=== PATIENT | female | born 1950 | race Caucasian/White ===

== ENCOUNTER → 2018-01-28 | Day surgery (SDC) | payer OTHER ==
[2018-01-13 07:51] VITALS: Ht 157.5 cm; Wt 85.5 kg
[~2018-01-28] VITALS: Ht 157.5 cm; Wt 85.5 kg
[~2018-01-28] MED LIST: 500ML BSS 0.3ML EPI 1:1000PF IRRIG ONE; ACETAMINOPHEN 325 MG TAB PO PRN; AMVISC PLUS 0.8ML SYRINGE INT OCU ONE; ATROPINE SULFATE 0.1 MG/ML 5ML SYR IV PRN; AcetylCHOLine CHL OP SOL 1:100 2 ML BTL ONE; BSS FLUSH ONE; CHOL1000 PO; COEN1CAP7 PO; ENDOCOAT 0.85ML SYRINGE INT OCU ONE; EpHEDrine SULFATE INJ 50 MG/ML AMP IV PRN; EpINEphrine INJ 1MG/ML AMP 1 MG/ML AMP ONE; LABETALOL HCL IV 5 MG/ML 20ML ONE; LACTATED RINGER'S 1000ML 500 ML IV SCH; LIDOCAINE 4% OP SOLN DROP CHARGE ONE; LIDOCAINE 4% OP SOLN DROP CHARGE OPL SCH; LIDOCAINE HCL 1% MPF 2 ML VIAL ONE; LISI-788 PO; MIDAZOLAM HCL 1 MG/ML 2ML VIAL ONE; MIX: 4ML BSS 1ML EPI 1:1000 PF TOP ONE; MOXIFLOXACIN OPH SOLN PER DROP CHARGE ONE; ONDANSETRON INJ 2 MG/ML 2 ML VIAL IV PRN; POVIDONE-IODINE OP SOLN 30 ML BTL ONE; PROPARACAINE 0.5% OP SOLN PER DROP CHARGE OPL SCH; TOBRAMYCIN/DEXAMETHASONE OPH OINT PER APPLN CHARGE ONE
[2018-01-28] MEDS: PHENYLEPHRINE HCL 2.5% OP SOLN PER DROP CHARGE OPL SCH ×3 (08:00→08:12)
[2018-01-28] MEDS: CYCLOPENTOLATE HCL 1% OP SOLN PER DROP CHARGE OPL SCH ×3 (08:00→08:14)
[2018-01-28] MEDS: TROPICAMIDE 1% OP SOLN PER DROP CHARGE OPL SCH ×3 (08:01→08:13)
--- NOTE | 2018-01-28 08:02 | History & Physical Bridge - [place] ---
H&P Re-Evaluation Bridge Note: I have examined the patient, reviewed the History & Physical and in the interval since the performance of the History & Physical I have noted the following changes of clinical significance: No changes noted
[2018-01-28] MEDS: MOXIFLOXACIN OPH SOLN PER DROP CHARGE OPL SCH ×3 (08:15→09:09)
--- NOTE | 2018-01-28 09:15 | [facility] Post Operative Brief Note ---
Immediate Operative Summary Operative Date January 28, 2018. Pre-Operative Diagnosis Left Eye Cataract Post-Operative Diagnosis same as pre op Procedure(s) Performed Left Cataract Phacoemulsification With Intraocular Lens Implant With Symfony Lens Surgeon Dr Salinas Track Worker Surgeon(s) none Estimated Blood Loss 0ml Findings Consistent with Post-Op Diagnosis Specimens none Anesthesia Type MAC Complication(s) none Disposition Accompanied Pt To Recovery: no Disposition:
--- NOTE | 2018-01-28 09:16 | [facility] Operative Report ---
Operative Report Date of Service January 28, 2018. Operative Report DATE OF OPERATION: 01/28/18 PREOPERATIVE DIAGNOSIS: Senile nuclear cataract, left eye POSTOPERATIVE DIAGNOSIS: Senile nuclear cataract, left eye PROCEDURE PERFORMED: Phacoemulsification with intraocular lens implantation, left eye SURGEON: Dr. Holden Salinas ANESTHESIA: Topical with 1% intracameral lidocaine and monitored anesthesia care COMPLICATIONS: None DESCRIPTION OF PROCEDURE: After positively identifying the patient both verbally and by wristband in the preoperative area, the left eye was marked as the operative eye. The patient was then brought back to the operating room by the anesthesia and nursing staff where they were given a drop of Lidocaine and betadine into the operative eye. They were then sterilely prepped and draped in the standard fashion typical for ophthalmic surgery. Steri-strips were placed along the upper eyelids to keep the lashes back, and a lid speculum was placed into the operative eye. At this point, a documented time out was performed with members of the ophthalmology, nursing, and anesthesia staffs all agreeing upon the correct patient, correct location for surgery, correct procedure, and correct type and power of intraocular lens to be implanted. The microscope was then swung into position. First, a paracentesis wound was made using a sideport blade. Then, in sequence, 1% preservative-free lidocaine followed by Endocoat viscoelastic was injected into the anterior chamber. Next , the main incision was made with a keratome blade in triplanar fashion. A sharp cystotome was introduced into the eye and used to create a tear in the anterior capsule, which was directed into a continuous curvilinear capsulorrhexis using Utrata forceps. Hydrodissection was then performed with BSS on a flat-tip cannula. Next, the phacoemulsification handpiece was introduced into the eye and used to remove the nucleus in a [id number] fashion. This was done without complication and then the irrigation-aspiration handpiece was introduced into the eye and used to remove all remaining cortical and epinuclear material. Amvisc was then injected into the anterior chamber as well as into the capsular bag and using the lens injector system, a ZXR00 21.0 D lens, serial number [id number], and expiration date 11/2022 was injected into the capsular bag and rotated into the correct position. Next, the irrigation- aspiration handpiece was used to remove all remaining Amvisc. BSS was used to hydrate the main wound, and then BSS was injected into the paracentesis site to reach physiologic pressure and then the main wound was checked and found to be watertight. The patient was given drops of Vigamox and Tobradex ointment into the operative eye, and then the surrounding area was cleaned and dried. A clear plastic shield was placed over the eye and the patient was then sat up and taken from the operating room by the anesthesia staff having tolerated the procedure well and suffering no complications. DISPOSITION: The patient was returned to the recovery room in stable condition. I attest to the content of the Intraoperative Record and any orders documented therein. Any exceptions are noted below.
--- NOTE | 2018-01-28 09:17 | Discharge Instructions-SurgCtr ---
Discharge Instructions Date of Service January 28, 2018. Visit Reason for Visit: Left Cataract Discharge Discharge Diagnosis / Problem: left cataract Discharge Goals Goal(s): Decrease discomfort, Improve function Activity Recommendations Activity Limitations: as noted below Anesthesia . Post Anesthesia Instructions: If you have had General Anesthesia or IV Sedation: * Do not drive today. * Resume driving when surgeon permits. * Do not make important decisions or sign legal documents today. * Call surgeon for: 1. Temperature elevations greater than 101 degrees F. 2. Uncontrollable pain. 3. Excessive bleeding. 4. Persistent nausea and vomiting. 5. Medication intolerance (nausea, vomiting or rash). * For nausea and vomiting use only clear liquids such as: tea, soda, bouillon until nausea subsides, then gradually increase diet as tolerated. * If you have any concerns or questions, call your surgeon's office. If physician is unavailable and it is an emergency, call 911 or go to the nearest emergency room. . Instructions / Follow-Up Instructions / Follow-Up ACTIVITY RECOMMENDATIONS: * Light activities. * You may walk outside, read, watch television. * You may notice redness on the white part of the eye and some blurry vision - this is normal. MEDICATIONS: Resume previous medications unless instructed otherwise by your surgeon. Start all eye drops at 11:30 am today: * Eye drops (today): Prednisone - one drop in operative eye every 2 hours while awake Ofloxacin - one drop in operative eye every 2 hours while awake Prolensa - one drop in operative eye daily SPECIAL CARE INSTRUCTIONS: * Tape plastic shield over eye to sleep at night. Call your doctor at with any concerns or problems. FOLLOW UP VISIT: Follow-up with Dr Salinas at [place] office as scheduled. Diet Recommendations Home Diet: no limitations Procedures Procedures Performed: Left Cataract Phacoemulsification With Intraocular Lens Implant With Symfony Lens Pending Studies Studies pending at discharge: no Medical Emergencies . Who to Call and When: Medical Emergencies: If at any time you feel your situation is an emergency, please call 911 immediately. . Non-Emergent Contact Non-Emergency issues call your: Surgeon . . "Provider Documentation" section prepared by Holden Salinas. .
[2018-01-28 09:18] VITALS: TEMP 36.4
--- NOTE | 2018-01-28 09:37 | Anesthesia Progress Nt - [facility] ---
Anesthesia Post Op Note Date & Time January 28, 2018 at 09:37 Vital Signs Pain Intensity: 0 Vital Signs Past 12 Hours Date Time Temp Pulse Resp B/P (MAP) Pulse Ox O2 Delivery O2 Flow Rate FiO2 01/28/18 09:18 36.4 69 16 161/80 (107) 95 Room Air 01/28/18 07:46 36.5 72 18 144/82 (102) 98 Room Air Notes Mental Status: alert / awake / arousable, participated in evaluation Pt Amnestic to Procedure: Yes Nausea / Vomiting: adequately controlled Pain: adequately controlled Airway Patency, RR, SpO2: stable & adequate BP & HR: stable & adequate Hydration State: stable & adequate Anesthetic Complications: no major complications apparent
[2018-01-28 09:51] VITALS: BP 146/79; PULSE 71; O2SAT 100
== END | disposition home or self-care (01) ==
LOC: X.SURG 07:35
PROVIDERS: ATTEND Ophthalmology
DX: H25.12 Age-related nuclear cataract, left eye (principal); I10 Essential (primary) hypertension; G47.33 Obstructive sleep apnea (adult) (pediatric); Z85.3 Personal history of malignant neoplasm of breast; Z90.89 Acquired absence of other organs; Z87.891 Personal history of nicotine dependence; Z80.3 Family history of malignant neoplasm of breast

== ENCOUNTER 2025-01-21 06:24 | Observation (INO) ==
--- NOTE | 2024-12-22 13:42 | PAT Medication Instructions ---
Medication Instructions Date of Service December 22, 2024 Home Medications Calcium + D 1,000 mg PO QPM hydrochlorothiazide 25 mg tablet 25 mg PO QAM lisinopril 20 mg tablet 40 mg PO QAM meclizine 25 mg tablet 25 mg PO DAILY PRN mrtpkahn-vwa-cjzj-FA-Ca carb-vit K 18 mg iron-400 mcg-500 mg tablet 1 tab PO QPM omeprazole 20 mg capsule,delayed release 20 mg PO QAM Continue as directed meclizine 25 mg tablet 25 mg PO DAILY PRN(if needed) DO NOT take the morning of surgery hydrochlorothiazide 25 mg tablet 25 mg PO QAM lisinopril 20 mg tablet 40 mg PO QAM Take morning of surgery With a small sip of water, OTHERWISE NOTHING TO EAT OR DRINK AFTER MIDNIGHT: omeprazole 20 mg capsule,delayed release 20 mg PO QAM Take evening before surgery Calcium + D 1,000 mg PO QPM gjpmgsyh-vjn-dpyn-FA-Ca carb-vit K 18 mg iron-400 mcg-500 mg tablet 1 tab PO QPM Other Notes If you have any questions please call us at [phone] or [phone] or [phone] or [phone]
--- NOTE | 2024-12-28 10:12 | Anesthesiology Consultation ---
Date of Service December 28, 2024 Assessment & Plan (1) Encounter for pre-operative examination: - Patient requests testing be faxed to [facility] PCP for continuity of care. - Outpatient joint assessment: Patient is currently scheduled for inpatient pathway. If re-evaluated and patient/surgeon requests outpatient pathway, patient is not advised candidate for outpatient joint program. Chart Review Chart Review: Acceptable Risk for Surgery and Patient seen in Pre Admission Testing Teaching & Discussion Pre-Anesthesia Teaching/Discussion Notes: Instructed NPO after midnight before surgery, except medications with 15 cc of water. Medication instructions provided according to the PAT guidelines. History Surgery Operation Date: 01/21/25 07:00 Proposed Procedures p Left Total Knee Arthroplasty - Elton Sterling DO Height/Weight Height: 5 ft 2 in Weight: 89.2 kg Allergies Allergy/AdvReac Type Severity Reaction Status Date / Time adhesive Allergy Unknown SKIN Verified 12/17/24 10:16 PIMPLES No Known Drug Allergies Allergy Unknown . Verified 12/17/24 10:16 Medications Home Medications Medication Instructions Recorded Confirmed Last Taken Calcium + D 1,000 mg PO QPM 12/17/24 12/17/24 Unknown hydrochlorothiazide 25 mg tablet 25 mg PO QAM 12/17/24 12/17/24 Unknown lisinopril 20 mg tablet 40 mg PO QAM 12/17/24 12/17/24 Unknown meclizine 25 mg tablet 25 mg PO DAILY PRN Vertigo 12/17/24 12/17/24 Unknown suysbbzz-kph-njlz-FA-Ca carb-vit K 1 tab PO QPM 12/17/24 12/17/24 Unknown 18 mg iron-400 mcg-500 mg tablet omeprazole 20 mg capsule,delayed 20 mg PO QAM 12/17/24 12/17/24 Unknown release cranberry extract 250 mg tablet mg PO 12/28/24 Unknown Additional Notes: Patient was instructed to stop collagenase powder 2 weeks before surgery and she is to stop cranberry and Zicam supplement the morning of surgery. She denied additional questions, concerns, medications or supplements. Past Medical History Medical History (Updated 12/29/24 @ 08:40 by Casandra Melara PA-C) Chronic kidney disease, stage 3b History of COVID-19 (~2022) ~2022, denies hospitalization, resolved History of hypertension controlled, stable per pt Hx of breast cancer (2018) ductal carcinoma in situ, left breast; sx and accelerated xrt 2x/day for 1 week-denies limb restriction Hx of bronchitis (~09/2024) 09/2024, cough lasted "for almost a month" resolved Hx of chest pain (~2023) over 1 year ago (early 2023), had negative stress test "told it may have been her GERD"; no cardiology currently-states rare recurrence of chest tightness with respiratory illnesses which resolved once illness resolved Hx of colonic polyps Hx of gastroesophageal reflux (GERD) controlled, stable per pt Nausea and vomiting after administration of anesthetic agent "only happened years ago, not with any recent procedures" Scoliosis Sleep apnea CPAP-compliant Patient denies h/o stroke, seizures, heart attack, heart failure, DM, blood c lots/DVTs or blood transfusions. Exercise / Class Metabolic Activity II 4-5 Yardwork/Stairs/Walk up hill (denies chest discomfort or shortness of breath with one flight of stairis) Past Surgical History Surgical History History of bilateral tubal ligation History of dilatation and curettage History of esophagogastroduodenoscopy (EGD) (2020) History of lumpectomy of left breast (2017) Hx of bilateral cataract extraction Hx of colonoscopy (2023) Hx of oral surgery in the s, "for tooth that didn't grow in right" Hx of tonsillectomy as child Past Anesthesia History No Hx of Anesthesia Complications and No Family Hx of Anesthesia Complications History of PONV History of PONV and Hx of Motion Sickness Social History Smoking Status: Former smoker Do You Dip or Chew Tobacco: No Smoking End Date: many years ago Hx Alcohol Use: Yes Alcohol type: wine alcohol intake frequency: holidays/special occasions only Hx Substance Use: No substance use type: does not use Review of Systems Patient denies chest pain, shortness of breath, dyspnea on exertion, fever, chills, cough, wheezing, or palpitations. Physical Exam Vital Signs Vitals BP 139/82 P 71 TEMP 97.7 SP02 96% on RA RESP 18 Physical Patient resting comfortably in chair in no acute distress, alert and oriented, responding appropriately throughout visit Full cervical extension range of motion without pain TMD 3.5 finger breadths Mallampati Score 2 Dentition: front upper veneers and implants, denies chipped or loose teeth, caps/crowns, or bridges Lungs: normal respiratory effort. Good air movement, clear throughout to auscultation, no adventitious breath sounds Cardiac: regular rate and rhythm, no murmurs noted Carotid arteries: negative bruit bilat Lab Results Anesthesia Preop Results Results Anesthesia Widget: WBC 7.39 K/ul (4.8-10.8) 12/28/24 Hgb 12.2 g/dl (12.0-16.0) 12/28/24 Hct 37.6 % (37.0-47.0) 12/28/24 Plt 240 K/uL (130-400) 12/28/24 Na 140 mmol/L (136-145) 12/28/24 K 4.3 mmol/L (3.5-5.1) 12/28/24 Cl 104 mmol/L (98-107) 12/28/24 CO2 29 mmol/L (21-32) 12/28/24 BUN 22 mg/dl (6-23) 12/28/24 Creat 1.19 mg/dl (0.6-1.2) 12/28/24 Glucose Level 93 mg/dl (70-99(Fasting)) 12/28/24 PT 10.8 Seconds (9.0-12.0) 12/28/24 PTT 28 Seconds (21-31) 12/28/24 INR 1.0 (0.9-1.1) 12/28/24 Blood Type A Positive 12/28/24 Antibody Screen NEGATIVE 12/28/24 Testing Electrocardiogram Date: 12/28/24 NSR, rate 66 bpm Chest X-Ray Date: 12/28/24 No acute cardiopulmonary findings. Stress Test Date: 05/30/22 MPHR 105% Negative for ischemia EF > 70%
[2025-01-21] MEDS ORDERED: ROPIVACAINE 0.5% 5 MG/ML 30 ML VIAL ONE (06:28)
[2025-01-21] MEDS ORDERED: BUPIVACAINE 0.5 % 5 MG/1 ML PF 10ML VIAL ONE (06:28)
--- NOTE | 2025-01-21 06:40 | History & Physical Bridge Note ---
Date of Service January 21, 2025 History & Physical Bridge Note I have examined the patient, reviewed the History & Physical and in the interval since the performance of the History & Physical I have noted the following changes of clinical significance: no changes noted
--- OUTSIDE RECORDS SUMMARY | 2025-01-21 06:56 | External Medical Summary | Summary of Care ---
Author Name Unknown Organization [facility] Address [address] [place] [address] Phone [phone] Care Team Providers Care Lab Clerk Name Role Phone Eyal Horton MD Primary Care Provider [phone] Reason for Visit * Reason Onset Date Comments Health Maintenance 01/11/2025 Encounter Details Date Type Department Care Team (Late st Contact Info) Description 01/11/2025 Telephone [facility] [address] [place] [address] Eyal Horton MD [address] [place], [place] [id number] Health Maintenance Allergies Active Allergy Reactions Criticality Noted Date Comments Adhesive Tape 05/29/2011 Has reaction to the skin documented as of this encounter (statuses as of 01/12/2025) Medications Collagenase Powder Use as directed. Active Meclizine HCl 25 MG Oral Tablet (Antivert)Indicatio ns:Benign paroxysmal vertigo, unspecified laterality Take 0.5-1 Tabs by mouth 3 times a day as needed for Dizziness. 30 Tab 1 1 Active Calcium 1000 + D 1000-800 MG-UNIT Oral Tablet (Calcium Carb-Cholecalcifero l) Take by mouth 1 Tablet daily . Active Diclofenac Sodium 1 % External Gel (Voltaren)Indicatio ns:Osteoarthritis of carpometacarpal (CMC) joints of both thumbs, unspecified osteoarthritis type Apply topically to affected area 4 times a day as needed for Pain. Apply to base of thumbs 150 g 5 2 Active Multivitamin Women 50+ Oral Tablet Take by mouth. Active Cranberry 125 MG Oral Tablet Take by mouth. Active Omeprazole 20 MG Oral Capsule Delayed Release (PriLOSEC)Indicatio ns:Gastroesophageal reflux disease without esophagitis TAKE 1 CAPSULE BY MOUTH DAILY. TAKE 1 HOUR BEFORE THE FIRST MEAL OF THE DAY. 90 Capsule 3 4 Active Lisinopril 20 MG Oral Tablet (Prinivil)Indicatio ns:HTN, goal below 140/90 TAKE 1 TABLET BY MOUTH IN THE MORNING AND 1 TAB BEFORE BEDTIME 180 Tablet 3 5 Active hydroCHLOROthiazide 25 MG Oral Tablet (Hydrodiuril)Indica tions:HTN, goal below 140/90 Take 1 Tablet by mouth in the morning. 90 Tablet 2 5 Active documented as of this encounter (statuses as of 01/12/2025) Active Problems Problem Noted Date Diagnosed Date Hypertensive kidney disease with stage 3b chronic kidney disease 03/06/2021 Overview: Per CKD protocol Chronic kidney disease, stage 3b 03/06/2021 Overview: Per CKD protocol Cough 11/08/2020 Nocturnal hypoxemia 11/04/2019 Incomplete emptying of bladder 07/22/2019 Thickened endometrium 05/10/2019 HTN, goal below 140/90 09/10/2017 Vitamin D insufficiency 10/13/2015 HAYDEN (obstructive sleep apnea) 01/05/2015 Overview (05/06/2023): 12/2014 PSG -- AHI 23, desats 54 minutes [facility] Oxygen Obesity, Class I, BMI 30.0-34.9 (see actual BMI) 01/29/2012 Overview (01/29/2012): bmi= 31.58 01/29/12 Carcinoma in situ of breast 06/18/2011 Hypersomnia with sleep apnea 02/02/2007 Anxiety state 01/02/2007 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 FAMILY HX-GI MALIGNANCY 05/19/2003 Esophageal reflux 05/19/2003 documented as of this encounter (statuses as of 01/12/2025) Resolved Problems Problem Noted Date Diagnosed Date Resolved Date Chronic kidney disease, stage 3a 01/30/2021 03/08/2021 Overview: Per CKD protocol Hypertensive kidney disease with stage 3a chronic kidney disease 07/31/2020 03/08/2021 Overview: Per CKD protocol Hypertensive kidney disease with chronic kidney disease stage III 02/01/2019 08/03/2020 Overview: Per CKD protocol Kidney disease, chronic, sta ge III (GFR 30-59 ml/min) 06/29/2018 03/03/2019 Overview: Per CKD protocol #1 Malaise and fatigue 01/02/2007 06/23/20 18 Menopause 05/19/2003 06/23/2018 documented as of this encounter (statuses as of 01/12/2025) Immunizations Name Administration Dates Next Due COVID-19 mRNA, LNP-s, No Pre serve, 2-Dose Series (Kryptiq) 11/04/2020,10/14/2020 COVID-19, MRNA-LNP, PF, 10 M CG/0.3 mL, 5-11 YRS, IM (PFIZER) 07/21/2023 Covid-19, Mrna, Lnp-s, Pf, B ivalent, 30 Mcg, IM, 12 yrs and above (Kryptiq) 08/20/2022 PPD 10/07/2018,09/29/2018 Pneumococcal Conjugate Vacc, 13 Valent (Prevnar) 06/10/2016 Pneumococcal Polysaccharide PPV23 (Pneumovax) 01/10/2015 RSV Vac., Bivalent, Perfusio n F, Pf,0.5 Ml (Abrysvo) 07/23/2024 Seasonal Influenza Vac., MDV , IM, 0.5 mL (Fluzone) 06/22/2015,07/23/2014 Seasonal Influenza, High Dos e, Trivalent, PF, IM (Fluzone HD) 07/05/2024 Seasonal Influenza, PF, 6 M & above, IM , (FluLaval or Fluzone) 06/15/2020,06/23/2018,06/22/2017 Seasonal Influenza, Quadriva lent Hd (Fluzone Hd) 07/02/2023,07/23/2022 Seasonal Influenza, Quadriva lent, No Preserve, IM 10/17/2016 Seasonal Influenza, Trivalen t, Adjuvanted, 65+ YRS, PF, (Fluad) 09/29/2019 TD, Preservative Free 05/09/2021 TDAP, Age 7 and older, IM (Adacel) 05/03/2011 Varicella Zoster Vaccine Adult (Zostavax) 2015 Zoster Vaccine Recombinant (Shingrix) 05/05/2020 ,03/02/2020 documented as of this encounter Social History Tobacco Use Types Packs/Day Years Used Date Smoking Tobacco: Former Cigarettes 0.5 35 0 09/22/1966 - 09/22/2001 Smokeless Tobacco: Never Comments:Did socially smoke after 2001, Just smokes occasionally now Quit smoking 02/2023 Alcohol Use Standard Drinks/Week Comments Yes 0 (1 standard drink = 0.6 oz pur e alcohol) less than once a week AUDIT-C Answer Date Recorded Frequency of Alcohol Consumption Monthly or less 02/11/2019 Average Number of Drinks Not on file 019 Frequency of Binge Drinking Not on file 01/21 PHQ-2 Answer Date Recorded PHQ Adult Total Score 0 05/06/2024 Hunger Vital Sign Answer Date Recorded Within the past 12 months, y ou worried that your food would run out before you got the money to buy more. Never true 08/12/20 23 Within the past 12 months, t he food you bought just didn't last and you didn't have money to get more. Never true 08/12/2023 Childcare Answer Date Recorded Do you feel overwhelmed with taking care of a child, family member or friend? No 08/12/2023 Does your family need help f inding childcare? (Household - for ages 0-17 years) Not on file 08/12/2023 Clothing Answer Date Recorded Have you been unable to get clothing when it was really needed? No 08/12/2023 Is your family able to get c lothes or diapers when needed? (Household - for ages 0-17 years) Not on file 08/12/2023 Personal Safety Answer Date Recorded Do you feel unsafe or have concerns for your saf ety? No 08/12/2023 Do you have concerns for you r family's safety? (Household - for ages 0-17 years) Not on file 08/12/2023 Utilities Answer Date Recorded Do you have trouble paying y our heating, water, or electric bill? No 08/12/2023 Is your family able to pay t he heat, water, or electric bill? (Household - for ages 0-17 years) Not on file 08/12/2023 Does your family have access to good internet? (Household - for ages 0-17 years) Not on file 08/12/2023 Employment Status Answer Date Recorded Are you unemployed or without regular income? No 08/12/2023 Does the household have a rustlar source of income? (Household - for ages 0-17 years) Not on file 08/12/2023 Social Connections Answer Date Recorded How often do you feel lonely or isolated from th ose around you? Never 08/12/2023 Financial Resource Strain Answer Date R ecorded Do you have any trouble payi ng for your medications, or do you think you might in the future? No 08/12/2023 Does your family have troubl e paying for medicine? (Household - for ages 0-17 years) Not on file 08/12/2023 Transportation Needs Answer Date Record ed READ ONLY Do you have troubl e getting a ride to medical visits or work? Never True 08/12/2023 Does your family have a hard time getting a ride to doctors visits? (Household - for ages 0-17 years) Not on file 08/12/2023 Has lack of transportation k ept you from medical appointments, meetings, work, or from getting things needed for daily living? Check all that apply. (Adult - for ages 18 years and over) Not on file 08/12/2023 Do you (or your family) have trouble finding or paying for a ride (transportation)? (Household - for ages 0-17 years) Not on file 08/12/2023 Housing Stability Answer Date Recorded Do you currently live in a s helter or have no steady place to sleep at night? No 08/12/2023 READ ONLY Do you think you a re at risk of becoming homeless? No 08/12/2023 Does your family worry about paying for your home or becoming homeless? (Household - for ages 0-17 years) Not on file 1 10/12/2022 Are you homeless or worried that you might be in the future? (Adult - for ages 18 years and over) Not on file Are you (or your family) benita eless or worried that you might be in the future? (Household - for ages 0-17 years) Not on file Food Insecurity Answer Date Recorded Do you need food for this week? No 08/12/2023 Are you able to get enough f ood for your family? (Household - for ages 0-17 years) Not on file 08/12/2023 Does your family need food t his week? (Household - for ages 0-17 years) Not on file 08/12/2023 Do you always have enough fo od for your family? 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 Not on file Not on file documented as of this encounter Miscellaneous Notes * Telephone Encounter - Susannah TeresaSANDRA - 01/11/2025 3:40 PM EDT Care Gaps Comprehensive Care Outreach Last Office/Telemedicine Visit: Visit date not found (in office), Visit date not found (telemedicine) Next Office Visit: Visit date not found Hemoglobin AIC Results: No results found for: "HEMOGLOBIN A1C" BP Readings from Last 1 Encounters: 07/05/24 126/66 Reviewed Health Maintenance below: Health Maintenance Topic Date Due GFR 12/27/2024 COVID-19 Vaccine ( season) 2025 Depression Screening 05/06/2025 Adult Wellness Visit 05/06/2025 CKD HGB USE SMARTSET 85224 06/28/2025 CKD PHOS USE SMARTSET 66035 06/28/2025 Albumin/Creatinine Ratio 07/05/2025 Ov jun year Labs Awv aug already scheduled Care Gap Outreach Action Taken: [employer] message sent documented in this encounter Plan of Treatment Upcoming Encounters Date Type Department Care Team (Late st Contact Info) Description 05/03/2025 9:00 AM EDT Office Visit Sleep Disorders Ctr [facility] [address] [place] [phone] Ilene Shelton CRNP [address] [place] [address] 05/10/2025 9:00 AM EDT Nurse Only Ancillary Department, Naldo Sanchez [address] [place] [phone] Naldo Nurse [facility] [address] [facility] [place] [address] 08/25/2025 11:15 AM EST Imaging Radiology [address] [place] [address] Scheduled Procedures Name Priority Associated Diagnoses Date/Ti me COLONOSCOPY FLEXIBLE PROXIMA L DIAGNOSTIC Recall History of colonic polyps Health Maintenance Due Date Last Done Comments GFR 12/27/2024 06/28/2024, 04/23, 04/22/2022, Additional history exists COVID-19 Vaccine ( season) 2025 09/30/2024, 07/21/2023, 07/21/2023, Additional history exists Adult Wellness Visit 05/06/2025 05/06/2024, 07/23/20 22 Depression Screening 05/06/2025 05/06/2024 CKD HGB USE SMARTSET 33055 06/28/202506/28, 05/12/2023, 04/22/2022, Additional history exists CKD PHOS USE SMARTSET 94864 06/28/202503/2024, 05/12/2023, 02/05/2021, Additional history exists Albumin/Creatinine Ratio 07/05/2025 024, 05/12/2023, 06/06/2022, Additional history exists DXA Scan 08/28/2026 08/28/2021, 1203/2021, 01/19/2014, Additional history exists Colonoscopy 10/03/2026 10/03/2023, 09/22, 06/26/2020, Additional history exists DTap/Tdap Vaccines (3 - Td or Tdap) 05/09/2031 05/09/2021, 05/03/2011, 12/21/1999 Pneumococcal Vaccine: 50+ Years Completed 06/10/2016, 01/10/2015 Zoster Vaccines Completed 05/05/2020, 02/20, 04/16/2016 RETIRED - COLONOSCOPY-EVERY 5 YRS AGES 18-100 Discontinued 10/03/2023, 10/03/2023, 06/26/2020, Additional history exists Influenza Vaccine (FLU shot) Completed 07/05/2024, 07/02/2023, 07/23/2022, Additional history exists HPV (Gardasil) Vaccine Aged Out No lo nger eligible based on patient's age to complete this topic Hepatitis B Vaccine Aged Out No longe r eligible based on patient's age to complete this topic MENINGOCOCCAL (MENACTRA/MENVEO) Aged Out No longer eligible based on patient's age to complete this topic Meningitis B Vaccine (Bexsero/Trumemba) Aged Out No longer eligible based on patient's age to complete this topic documented as of this encounter Medical Devices Not on filedocumented as of this encounter Care Teams Lab Clerk Relationship Specialty Start Date End Date Eyal Horton MD PCP - General 09/29/02 documented as of this encounter
--- OUTSIDE RECORDS SUMMARY | 2025-01-21 06:56 | External Medical Summary | Summary of Care ---
Author Name Unknown Organization [facility] Address [address] [place] [address] Phone [phone] Care Team Providers Care Evs Manager Name Role Phone Eyal Horton MD Primary Care Provider [phone] Reason for Visit * Reason Onset Date Comments Health Maintenance 01/11/2025 Encounter Details Date Type Department Care Team (Late st Contact Info) Description 01/11/2025 Telephone [facility] [address] [place] [address] Eyal Horton MD [address] [place], [place] [phone] Health Maintenance Allergies Active Allergy Reactions Criticality [...] mRNA, LNP-s, No Pre serve, 2-Dose Series (Giant Swarm) 11/04/2020,10/14/2020 COVID-19, MRNA-LNP, PF, 10 M CG/0.3 mL, 5-11 YRS, IM (PFIZER) 07/21/2023 Covid-19, Mrna, Lnp-s, Pf, B ivalent, 30 Mcg, IM, 12 yrs and above (Giant Swarm) 08/20/2022 PPD 10/07/2018,09/29/2018 Pneumococcal Conjugate Vacc, 13 [...] No 08/12/2023 Does the household have a [facility] source of income? (Household - for ages [...] Wellness Visit 05/06/2025 CKD HGB USE SMARTSET 84567 06/28/2025 CKD PHOS USE SMARTSET 71366 06/28/2025 Albumin/Creatinine Ratio 07/05/2025 Ov jun year Labs Awv aug already scheduled Care Gap Outreach Action Taken: [employer] message sent documented in this encounter Plan of Treatment Upcoming Encounters Date Type Department Care Team (Late st Contact Info) Description 05/03/2025 9:00 AM EDT Office Visit Sleep Disorders Ctr [facility] [address] [place] [phone] Ilene Shelton CRNP [address] [place] [address] 05/10/2025 9:00 AM EDT Nurse Only Ancillary Department, Naldo Sanchez [address] [place] [phone] Naldo Nurse Annual Wellness [address] [facility] [place] [address] 08/25/2025 11:15 AM EST Imaging Radiology [address] [place] [phone] [...] Screening 05/06/2025 05/06/2024 CKD HGB USE SMARTSET 73190 06/28/202506/28, 05/12/2023, 04/22/2022, Additional history exists CKD PHOS USE SMARTSET 17671 06/28/202503/2024, 05/12/2023, 02/05/2021, Additional history exists Albumin/Creatinine [...] filedocumented as of this encounter Care Teams Evs Manager Relationship Specialty Start Date End Date Eyal Horton MD PCP - General 09/29/02 documented as of this encounter
--- OUTSIDE RECORDS SUMMARY | 2025-01-21 06:56 | External Medical Summary | Summary of Care ---
Author Name Unknown Organization [facility] Address [address] [place] [address] Phone [phone] Care Team Providers Care Windows Software Engineer Name Role Phone Eyal Horton MD Primary Care Provider [phone] Reason for Visit * Reason Onset Date Comments Health Maintenance 01/11/2025 Encounter Details Date Type Department Care Team (Late st Contact Info) Description 01/11/2025 Telephone [facility] [address] [place] [address] Eyal Horton MD [address] [place], [place] [phone] Health Maintenance Allergies Active Allergy Reactions Criticality [...] mRNA, LNP-s, No Pre serve, 2-Dose Series (Fiiiling) 11/04/2020,10/14/2020 COVID-19, MRNA-LNP, PF, 10 M CG/0.3 mL, 5-11 YRS, IM (PFIZER) 07/21/2023 Covid-19, Mrna, Lnp-s, Pf, B ivalent, 30 Mcg, IM, 12 yrs and above (Fiiiling) 08/20/2022 PPD 10/07/2018,09/29/2018 Pneumococcal Conjugate Vacc, 13 [...] t, Adjuvanted, 65+ YRS, PF, (Fluad) 09/29/2019 TD - Tetanus/Diptheria (ADULT) 12/21/1999 TD, Preservative Free 05/09/2021 TDAP, Age 7 [...] No 08/12/2023 Does the household have a re gular source of income? (Household - for ages [...] Miscellaneous Notes * Telephone Encounter - Susannah Teresa LPN - 01/11/2025 3:40 PM EDT Care Gaps [...] Wellness Visit 05/06/2025 CKD HGB USE SMARTSET 81909 06/28/2025 CKD PHOS USE SMARTSET 95199 06/28/2025 Albumin/Creatinine Ratio 07/05/2025 Ov jun year Labs Awv aug already scheduled Care Gap Outreach Action Taken: [employer] message sent documented in this encounter Plan of Treatment Upcoming Encounters Date Type Department Care Team (Late st Contact Info) Description 05/03/2025 9:00 AM EDT Office Visit Sleep Disorders Ctr [facility] [address] [place] [phone] Ilene Shelton CRNP [address] [place] [address] 05/10/2025 9:00 AM EDT Nurse Only Ancillary Department, Naldo Brown [address] [place] [phone] Naldo Nurse Annual Wellness [address] [facility] [place] [address] 08/25/2025 11:15 AM EST Imaging Radiology [address] [place] [phone] Scheduled Procedures Name Priority Associated Diagnoses Date/Ti me COLONOSCOPY FLEXIBLE PROXIMA L DIAGNOSTIC Recall History of colonic polyps Health Maintenance Due Date Last Done Comments GFR 12/27/2024 06/28/2024, 04/23, 04/22/2022, Additional history exists COVID-19 Vaccine ( season) 2025 09/30/2024, 07/21/2023, 07/21/2023, Additional history exists Adult Wellness Visit 05/06/2025 05/06/2024, 07/23/20 22 Depression Screening 05/06/2025 05/06/2024 CKD HGB USE SMARTSET 30483 06/28/202506/28, 05/12/2023, 04/22/2022, Additional history exists CKD PHOS USE SMARTSET 23647 06/28/202503/2024, 05/12/2023, 02/05/2021, Additional history exists Albumin/Creatinine Ratio 07/05/2025 024, 05/12/2023, 06/06/2022, Additional history exists DXA Scan 08/28/2026 08/28/2021, 03/2021, 01/19/2014, Additional history exists Colonoscopy 10/03/2026 10/03/2023, [...] filedocumented as of this encounter Care Teams Windows Software Engineer Relationship Specialty Start Date End Date Eyal Horton MD PCP - General 09/29/02 documented as of this encounter
[2025-01-21] MEDS ORDERED: MIDAZOLAM HCL 1 MG/ML 2ML VIAL ONE (07:03)
[2025-01-21] MEDS ORDERED: PROPOFOL IV EMULSION 10 MG/ML 20 ML VIAL IV ONE (07:04)
[2025-01-21] MEDS ORDERED: ONDANSETRON INJ 2 MG/ML 2 ML VIAL ONE ×2 (07:06→09:10)
[2025-01-21] MEDS ORDERED: LIDOCAINE 2% 2 ML VIAL/AMP(20MG/ML) INFIL ONE (07:06)
[2025-01-21] MEDS: LR 500ML BOLUS, THEN 15ML/HR IV SCH (07:40)
[2025-01-21] MEDS: ACETAMINOPHEN 500 MG TAB PO SCH ×2 (07:44→13:45)
[2025-01-21] MEDS: FAMOTIDINE 20 MG TAB PO SCH (07:45)
[2025-01-21] MEDS: GABAPENTIN 300 MG CAP PO SCH (07:45)
[2025-01-21] MEDS: LR 60ML/HR IV SCH (07:46)
[2025-01-21] MEDS: dexAMETHasone**PF** 10 MG/ML VIAL IV SCH (07:46)
[2025-01-21] MEDS: TRANEXAMIC ACID 1,000 MG **IV Pre-op IV SCH (07:52)
[2025-01-21] MEDS: ceFAZolin 2000MG 2,000 MG/15 ML SYR IV SCH ×2 (08:05→16:08)
[2025-01-21] MEDS ORDERED: ONDANSETRON INJ 2 MG/ML 2 ML VIAL IV PRN ×2 (08:40→11:50)
[2025-01-21] MEDS ORDERED: HYDROmorphone INJ 2 MG/ML SYR/VIAL IV PRN (08:40)
[2025-01-21] MEDS ORDERED: PROMETHAZINE HCL 6.25 MG in SODIUM CHLORIDE 0.9% 50 ML IV PRN (08:40)
[2025-01-21] MEDS ORDERED: fentaNYL citrate PF 100 MCG/2 ML VIAL IV PRN (08:40)
[2025-01-21] MEDS ORDERED: ePHEDrine sulfate 50 MG/ML AMP IV PRN (08:40)
[2025-01-21] MEDS ORDERED: ATROPINE SULFATE 0.1 MG/ML 10ML SYR IV PRN (08:40)
[2025-01-21] MEDS: ORTHO JOINT ANESTHETIC ONE (08:41)
[2025-01-21] MEDS ORDERED: KETOROLAC 30 MG/ML VIAL ONE (08:49)
[2025-01-21] MEDS: TRANEXAMIC ACID 1,000 MG **IV Intra-op IV SCH (09:03)
[2025-01-21] MEDS: ROPIV 0.5% 246mg, Ketorolac 30mg, EPINEPHrine 0.5mg in NSS INFIL SCH (09:05)
--- NOTE | 2025-01-21 09:08 | Operative Report ---
PG Post Operative Report Pre & Post Diagnosis Operation Date: 01/21/25 08:00 Pre-Op Diagnosis: Osteoarthritis of Left Knee Post-Op Diagnosis: Osteoarthritis of Left Knee I identified the patient and participated in the time-out.: Yes Procedure Operation Date: 01/21/25 08:00 Actual Procedures p Left Total Knee Arthroplasty(Left) - Elton Sterling DO Surgeon Elton Sterling DO Technical Rep Andrew Garcia PA-C Estimated Blood Loss 50 Findings Consistent with Post-Op Diagnosis Specimens Left femoral and tibial bone Description of Procedure Implants used: I used a Rianna Persona total knee arthroplasty system with a size 7 standard PS femur, E tibia, 31 oval patella, and a size 12 CPS polyethylene bearing. All components were cemented in place with Biomet cement. Lennie arrived [facility] for the above procedure. She was seen in the preoperative holding area and the operative extremity was identified and signed. She was given a preoperative antibiotic, TXA, a spinal anesthetic and an adductor nerve block. She was taken back to the operating room and laid on the table in supine position. She was given basic sedation. The operative knee was then prepped and draped in sterile fashion. A timeout was done, and the patient and the operative extremity was properly identified. A midline incision was made directly over the patella. Dissection was taken down to the extensor mechanism. A medial parapatellar arthrotomy was used. The medial retinaculum was released and the fat pad was mostly excised. The knee was flexed and the ACL, PCL, and meniscus were removed. A drill was sent down the center of the femoral canal followed by an intramedullary nelson. Off that nelson a distal femoral cutting block was placed. 9 mm was resected off the distal femur at 5 of valgus. A posterior referencing AP sizing guide was then placed on the distal femur. The femur measured to be a size 7. 2 drill holes were placed in 3 of external rotation. A 4-in-1 cutting block was then impacted into place. Anterior, posterior, and chamfer cuts were then made. The proximal tibia was then exposed. An external tibial alignment guide was placed. A tibial cut guide was then anchored in place and the proximal tibia was then resected. The posterior aspect of the knee was then opened up and any additional meniscus fragments and osteophytes were removed. The tibia measured to be a size E. The tibial plate was then placed in the appropriate rotation and the tibia was drilled and punched. Trial components were then placed. I used a size 12 CPS polyethylene insert. The knee was brought through a full range of motion and felt to be stable. The peg holes for the femoral component were then drilled. The patella was then everted and 9 mm was resected off the posterior aspect of the patella. The patella measured to be a size 31 oval. 3 peg holes were then drilled. A trial patella was placed. The knee was once again brought through a full range of motion and felt to be stable. Trial components were then removed. The surrounding soft tissues were injected with 100 cc of an orthopedic pain control cocktail. All components were then cemented into place with Biomet cement. The final polyethylene insert was then snapped into place. Once cement was dry the tourniquet was deflated. Hemostasis was obtained. A dilute betadyne lavage was then done for 3 minutes. The joint was then irrigated with normal saline solution. The medial parapatellar arthrotomy was then closed with #1 Vicryl suture. The skin was closed with 2-0 Vicryl, 3-0V lock suture, and gissel. A soft compressive dressing was placed. She was then transferred to a hospital bed and taken to the postanesthesia care unit in stable condition. She tolerated the procedure well. Andrew Garcia PA-C, was present for the entire procedure. He was critical for patient positioning, prepping, draping, retraction exposure, wound closure and application of sterile dressing. I attest to the content of the Intraoperative Record and any orders documented therein. Any exceptions are noted below.
--- NOTE | 2025-01-21 10:11 | XRay Report ---
XR knee LT 1 or 2V routine HISTORY: 74 years-old Female Surgical Post Op left knee arthroplasty COMPARISON: 06/23/2024 TECHNIQUE: 3 views of the left knee FINDINGS: Total joint arthroplasty with patellar resurfacing. Anterior midline skin gissel with expected posto perative soft tissue swelling and deep tissue air.No acute fracture or unexpected opaque foreign body . IMPRESSION: Satisfactory alignment of the total joint arthroplasty. ACT 112: Negative or not required by law. The above report was generated using voice recognition software. It may contain grammatical, syntax o r spelling errors. Electronically signed by: Andrew Anderson M.D. 01/21/2025 10:10 AM
--- NOTE | 2025-01-21 11:28 | Anesthesiology Progress Note ---
Date of Service January 21, 2025 Anesthesia Post Procedure Vital Signs Vital Signs: Temp Pulse Pulse Resp BP Pulse Ox O2 Del Method 01/21/25 11:00 62 18 119/54 L 96 Room Air 01/21/25 10:45 65 16 114/57 L 94 Room Air 01/21/25 10:30 36.4 C L 60 16 121/60 94 Room Air 01/21/25 10:20 68 14 118/57 L 100 Room Air 01/21/25 10:10 62 20 125/52 L 96 Room Air 01/21/25 10:00 62 14 118/48 L 96 Room Air 01/21/25 09:50 67 16 123/53 L 96 Room Air 01/21/25 09:40 67 18 114/47 L 100 Oxymask 01/21/25 09:30 36.7 C 73 18 130/49 L 98 Oxymask 01/21/25 07:11 36.8 C 75 20 160/87 H 100 Room Air O2 Flow Rate 01/21/25 11:00 01/21/25 10:45 01/21/25 10:30 01/21/25 10:20 01/21/25 10:10 01/21/25 10:00 01/21/25 09:50 01/21/25 09:40 4 01/21/25 09:30 6 01/21/25 07:11 Pain Intensity Left Knee: Pain Intensity: 5 Right Lower Back: Pain Intensity: 4 Transfer of Care Handoff Completed per policy Notes Mental Status: alert / awake / arousable and participated in evaluation Patient Amnestic to Procedure: Yes Nausea / Vomiting: adequately controlled Pain: adequately controlled Airway Patency, RR, SpO2: stable & adequate BP & HR: stable & adequate Hydration State: stable & adequate Anesthetic Complications: no major complications apparent
[2025-01-21] MEDS ORDERED: NALOXONE HCL 0.4 MG/1 ML VIAL/CARP IV PRN (11:50)
[2025-01-21] MEDS ORDERED: bisacodyL 10 MG SUPP PR PRN (11:50)
[2025-01-21] MEDS ORDERED: METOCLOPRAMIDE HCL INJ 5 MG/ML 2 ML VIAL IV PRN (11:50)
[2025-01-21] MEDS ORDERED: MAGNESIUM HYDROXIDE SUSP 30 ML UDC PO PRN (11:50)
[2025-01-21] MEDS: SODIUM CHLORIDE 0.9% 1,000 ML IV SCH (12:10)
[2025-01-21] MEDS: HYDROmorphone INJ 0.5 MG/0.5 ML SYR IV PRN (12:12)
[2025-01-21] MEDS: KETOROLAC TROMETHAMINE 15 MG/ML VIAL IV SCH (12:12)
[2025-01-21] MEDS: oxyCODONE HCL IR 5 MG TAB (IMMEDIATE RELEASE) PO PRN (16:08)
[2025-01-21] MEDS: ASPIRIN 81 MG ECTAB PO SCH (20:06)
[2025-01-21] MEDS: SENNA 8.6 MG TAB PO SCH (20:06)
[2025-01-21] MEDS: DOCUSATE SODIUM 100 MG CAP PO SCH (20:06)
--- NOTE | 2025-01-22 06:49 | Discharge Summary ---
Date of Service January 22, 2025 Principal Diagnosis Same as "Discharge Diagnosis" noted below under Discharge Instructions. Discharge Exam On physical exam of the left knee, the dressing is clean and dry. Her leg is out full extension. She has active dorsiflexion plantarflexion of her left ankle.. Discharge Data Procedures Performed Operation Date: 01/21/25 08:00 Actual Procedures p Left Total Knee Arthroplasty(Left) - Elton Sterling DO Ordered Studies 01/21/25 05:00 US - OR guided needle placemen Routine Hospital Course (1) Status post left knee replacement: On January 21, 2025 Lennie arrived at [facility] and underwent a left knee replacement without complication. She had a spinal anesthetic. Postoperatively, she was started on aspirin for DVT prophylaxis and transferred to the general orthopedic floors. Her hospital course was uneventful. On postop day #1, her vital signs were stable and her pain was well-controlled. She was able to participate well with physical therapy doing ambulation and ra nge of motion exercises. She was then discharged to home. She will follow-up with orthopedics in 2 weeks. PG Care Time/CCT Total # of Minutes Spent Total Time Spent with Patient: Total time spent is greater than 50% in coordination of care (as documented) at patient's floor/unit and/or counseling patient: Discharge Plan Discharge Items Patient Disposition: Home - Self-Care Reason For Visit: Left Knee Arthritis Discharge Diagnosis: Left knee replacement Activity: Per Instructions section Non-emergency contact: Surgeon Call non-emergency contact if: your wound has increased redness and your wound has increased drainage Follow-up/Referrals: Eyal Horton MD [Primary Care Provider] - Diet: Regular Addtl Attending Provider Instructions: Activity and Therapy Recommendations: * If you are using [facility] then therapy will be provided at your home until they feel you have accomplished all of your goals. * If you are using [facility] then Physical Therapy will be provided until they feel you are ready to start Outpatient Physical Therapy. * If you are not using home therapy then Outpatient Physical Therapy should start about 3-5 days from your day of surgery. Therapy will last about 6-10 weeks * It is important not to put a pillow under your knee when you are relaxing or sleeping. It is just as important to make sure you are getting your knee perfectly straight as it is to regain your knee bend. * You were shown a series of exercises in the hospital. Do these exercises three times each day including the exercises you were shown in physical therapy. * Get up and walk several times each day. For the first four weeks, try not to stand or walk for more than one hour at a time. If you do stand or walk for more than one hour, you will not hurt anything, but your leg will likely swell. * As you feel comfortable, you may change from the walker or crutches to a cane and then to independent walking. Medications: * Narcotic You will likely be sent home from the hospital with a prescription for the narcotic pain medication that worked best throughout your stay. * Cefadroxil -take the antibiotic twice a day for 10 days to help prevent infection. * Aspirin Most patients will be required to take Aspirin 81mg twice a day for 6 weeks after surgery. This is obtained [id number] and a prescription is not necessary. * Other medications may be prescribed for specific circumstances. If you have any questions, please call the office at . * Resume previous home medications unless otherwise instructed TEDs/Elastic Stockings: The white elastic stockings help limit swelling and prevent blood clots from forming in your legs.~ The more you wear them, the more they work. Wear them for 2 weeks. Dressing Care: The dressing can be changed after physical therapy on postop day #1. Daily dry dressing changes for a few days, especially if the incision is still draining some. If the incision is not draining then you may leave the gissel open to air. If there is a little bit of drainage or if the gissel are getting stuck on your clothing then cover the incision with a dry dressing. The gissel will be removed at your 2 week follow-up appointment. Showering: You may shower 5 days from the day of surgery as long as the incision is no longer draining. You may shower with the gissel exposed. Let soapy water run over the gissel and pat them dry. Do not scrub or soak the incision. Diet: You may resume your previous diet. Things To Watch For: * Drainage from the incision site that occurs more than one week after your surgery. * Increased redness at the incision site. * Fever above 102 degrees Fahrenheit. * Unusual chest pain or shortness of breath. * Call [facility] at with any of the above problems Follow-Up Visit: Follow-up with Dr. Sterling's office 2-3 weeks after your day of surgery. We will remove your gissel and answer any questions. If you have any additional questions or concerns, Dr Sterling is usually in the office at the same time and will be available An appointment was probably scheduled when you signed-up for surgery in the office. If you have any questions call Office Instructions: More detailed instructions as well as Frequently Asked Questions were provided in a folder by our office when you signed-up for surgery. Please review these instructions when you get home. If you have any further questions or concerns, please feel free to call the office at [phone] Pending Studies at Discharge: No Stand-Alone Forms: My [facility], Smoking Cessation Medications and DC Order Prescriptions: New cefadroxil 500 mg capsule 500 mg PO BID 10 Days Qty: 20 0RF oxycodone 5 mg tablet 5 mg PO Q6H PRN (Reason: pain) Qty: 30 0RF aspirin 81 mg Tablet,Delayed Release (Dr/Ec) 81 mg PO BID 42 Days Qty: 0 0RF Continued lisinopril 20 mg tablet 40 mg PO QAM meclizine 25 mg Tablet 25 mg PO DAILY PRN (Reason: Vertigo) omeprazole 20 mg capsule,delayed release(DR/EC) 20 mg PO QAM hydrochlorothiazide 25 mg tablet 25 mg PO QAM Women's Multivitamin 18 mg iron-400 mcg-500 mg Tablet 1 tab PO QPM Calcium + D 1,000 mg PO QPM cranberry 250 mg Tablet 250 mg PO DAILY Discharge Orders: Discharge Order (Routine); Ordered 01/22/25 Ordered By: Elton Sterling Admission Data Admit Date/Time: 01/21/25 09:37 Attending Provider: Elton Sterling Admit Provider: Elton Sterling Primary Care Provider: Eyal Horton
--- NOTE | 2025-01-22 06:49 | Orthopedic Progress Note ---
Date of Service January 22, 2025 Assessment & Plan (1) Status post left knee replacement: Overall she is doing very well. She is not having much pain in the left knee. She will be seen by physical therapy today for ambulation and range of motion exercises. She is on aspirin for DVT prophylaxis. She can be discharged to home later today. She will follow-up with orthopedics in 2 weeks. Jenn Hogue was seen and examined at bedside this morning. Overall she is doing very well. She is not having much pain in the left knee. She has been up and ambulating to the bathroom. She has no complaints.. Review of Systems All systems reviewed & are unremarkable except as noted in HPI & below. Physical Exam On physical exam of the left knee, the dressing is clean and dry. Her leg is out full extension. She has active dorsiflexion plantarflexion of her left ankle.. Results & Data Results & Data Laboratory Results . Diagnostic Findings Postoperative x-rays of the left knee show the prosthesis to be in anatomic alignment without any evidence of fracture, dislocation, or loosening.. PG Care Time/CCT Total # of Minutes Spent Total Time Spent with Patient: Total time spent is greater than 50% in coordination of care (as documented) at patient's floor/unit and/or counseling patient: Coding Level of Care Code 42355 Post Operative Follow-Up Diagnoses Status post left knee replacement Z96.652
[2025-01-22 07:19] VITALS: BP 149/79; PULSE 79; RESP 16; TEMP 97.9; O2SAT 99
[2025-01-22] MEDS: hydroCHLOROthiazide 25 MG TAB PO SCH (08:01)
[2025-01-22] MEDS: MULTIVITAMIN TAB PO SCH (08:02)
[2025-01-22] MEDS: lisinopril 40 MG TAB PO SCH (08:02)
[2025-01-22] MEDS: PANTOprazole 40 MG TAB PO SCH (08:02)
[2025-01-22] MEDS: dexAMETHasone 4 MG TAB PO SCH (08:02)
== END 2025-01-22 11:39 | disposition home or self-care (01) ==
LOC: 3E 06:24 → ASU 06:24